=== PATIENT | male | born 2000 | race Caucasian/White ===

== ENCOUNTER 2021-11-12 18:41 | Emergency (ER) | payer OTHER ==
--- NOTE | 2021-11-12 19:37 | ERPHSYRPT ---
- History of Present Illness Time Seen by Provider: 11/12/21 18:52 Source: patient Exam Limitations: no limitations Patient Subjective Stated Complaint: fall- right knee injury Triage Nursing Assessment: Patient brought back to ED via w/c and transferred self to bed. Patient A+O X3. Patient's skin pink, warm and dry. Patient complains of right knee pain 5/10 after sliding off of his truck while working on his causing his right knee and ankle to give out on him 4 days ago. Patient denies pain to right ankle or foot, but right ankle/foot noted to be swollen and bruised. 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 Physician History: 21 years old male presented in the ER after he was working on his truck 4 days ago, slipped off and fell on the ground twisting his ankle and knee. Since then he is having moderate intensity sharp pain in the right knee, more with movements and having difficulty full weightbearing. Patient has a history of clubfoot surgery as a child and has decreased sensations in the ankle and noticed some swelling but no difficulty movements or erythema. Ankle swelling started yesterday. Patient was seen initially at [facility] with a negative x-rays and was recommended to take NSAIDs. Patient does not want any pain medication Method of Injury: fell, twisted Occurred: days ago (4) Quality: sharpness Severity of Pain-Max: moderate Severity of Pain-Current: moderate Lower Extremities Pain: knee: right, ankle: right Modifying Factors: Worsens With: movement Allergies/Adverse Reactions: cephalexin [From Keflex] Allergy (Verified 11/12/21 18:48) Home Medications: No Reportable Medications [No Reported Medications] 11/12/21 [History] Hx Influenza Vaccination/Date Given: No Hx Pneumococcal Vaccination/Date Given: No Immunizations Up to Date: Yes Travel Risk - International Travel Have you traveled outside of the country in past 3 weeks: No - Coronavirus Screening Are you exhibiting any of the following symptoms?: No Close contact with a COVID-19 positive Pt in past 14-21 Days: No - Vaccine Status Have you recieved a Covid-19 vaccination: No - Review of Systems Constitutional: No Symptoms Eyes: No Symptoms Respiratory: No Symptoms Cardiac: No Symptoms Abdominal/Gastrointestinal: No Symptoms Genitourinary Symptoms: No Symptoms Musculoskeletal: Arthralgias, Fall, Injury, Joint Pain, Joint Swelling Skin: No Symptoms Neurological: No Symptoms Psychological: No Symptoms Endocrine: No Symptoms Hematologic/Lymphatic: No Symptoms - Past Medical History Pertinent Past Medical History: No Neurological History: No Pertinent History ENT History: No Pertinent History Cardiac History: No Pertinent History Respiratory History: No Pertinent History Endocrine Medical History: No Pertinent History Musculoskeletal History: No Pertinent History GI Medical History: No Pertinent History History: No Pertinent History Psycho-Social History: No Pertinent History Male Reproductive Disorders: No Pertinent History Other Medical History: 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 - Past Surgical History Past Surgical History: Yes Other Surgical History: multiple surgeries to right foot due to club foot - Social History Smoking Status: Current every day smoker How long have you smoked: years Exposure to second hand smoke: Yes Drug Use: none Patient Lives Alone: No - Nursing Vital Signs Nursing Vital Signs: Initial Vital Signs Temperature 99.6 F 11/12/21 18:49 Pulse Rate 102 H 11/12/21 18:49 Respiratory Rate 18 11/12/21 18:49 Blood Pressure 136/85 11/12/21 18:49 O2 Sat by Pulse Oximetry 99 11/12/21 18:49 Pain Scale Pain Intensity 5 - Physical Exam General Appearance: no apparent distress, alert Eyes, Ears, Nose, Throat Exam: tonsillar exudate Neck Exam: normal inspection Cardiovascular/Respiratory Exam: normal breath sounds, regular rate/rhythm Legs Exam: bilateral leg: non-tender, normal inspection, normal range of motion, no evidence of injury Knees Exam: right knee: joint effusion (Suprapatellar), pain, soft tissue tenderness, swelling, left knee: non-tender, normal inspection, normal range of motion, no evidence of injury Ankle Exam: right ankle: swelling (Nontender swelling around ankle. Intact range of motion.), left ankle: normal inspection, normal range of motion, no evidence of injury, bilateral ankle: non-tender Neuro/Tendon Exam: normal sensation, normal motor functions Mental Status Exam: alert, oriented x 3, cooperative Skin Exam: normal color SpO2 Interpretation: normal SpO2: 99 O2 Delivery: Room Air Ordered Tests: Active Orders 24 hr Category Date Time Status ANKLE (3 VIEWS) Stat Exams 11/12/21 Taken FOOT (MINIMUM 3 VIEWS) Stat Exams 11/12/21 Taken KNEE (MIN 4 VIEW) Stat Exams 11/12/21 Taken - Progress Progress: unchanged Progress Note: 11/12/21 19:49 Offered pain medication which he refused. I believe patient has right suprapatellar effusion. Recommended Sid wrap and outpatient Ortho clinic follow-up. Patient has swelling around right ankle but no tenderness. X-rays negative reviewed by me of both ankles/knee. Official report is pending. Recommended outpatient podiatry follow-up for ankle swelling. Recommended continue with Tylenol ibuprofen, elevation and ice. - Departure Departure Disposition: Home Clinical Impression: Right knee sprain, Ankle swelling Condition: Stable Critical Care Time: No Referrals: DOCTOR,NO FAMILY [Primary Care Provider] - Follow up/PCP as directed ORTHO - SONDRA FRAGA NP [NON-STAFF PHY W/O PRIVILEGES] - Follow up/PCP as directed (In 2 days for reevaluation) MORGAN VILLALBA DPM [ACTIVE STAFF] - Follow up/PCP as directed (In 2 days for ankle swelling reevaluation) Instructions: Knee Sprain (DC) Additional Instructions: Avoid exertional activities, continue with Tylenol/ibuprofen. Right lower extremity elevation while asleep. Intermittent ice. Follow-up with Ortho clinic and podiatry for reevaluation. Return to ER for worsening pain or swelling.
[2021-11-12 19:45] VITALS: BP 135/63; PULSE 99
[2021-11-12 19:46] VITALS: O2SAT 99
--- NOTE | 2021-11-13 08:28 | XRAY ---
Indication: Pain following fall. Comparison: None 3 view right ankle demonstrates anterior medial soft tissue swelling. Deformity distal tibia and calcaneus either developmental or old injury. No other bony, articular, or soft tissue abnormalities.
--- NOTE | 2021-11-13 08:30 | XRAY ---
Indication: Pain following fall. Comparison: None 3 nonweightbearing views right foot demonstrates deformity distal tibia and posterior calcaneus either developmental versus old injury. No other bony, articular, or soft tissue abnormalities.
--- NOTE | 2021-11-13 08:31 | XRAY ---
Indication: Pain following fall. Comparison: None 4 view right knee obtained. No bony, articular, or soft tissue abnormalities.
== END 2021-11-12 19:57 | disposition home or self-care (01) ==
LOC: ED 18:41
DX: S83.91XA Sprain of unspecified site of right knee, initial encounter (principal); W17.89XA Other fall from one level to another, initial encounter; M25.471 Effusion, right ankle; Z72.0 Tobacco use
CPT/HCPCS: 73564; 73610; 73630; 99283

== ENCOUNTER 2022-05-14 01:39 | Emergency (ER) | payer OTHER ==
[2022-05-14] MEDS ORDERED: PROTONIX 40 MG IV IV ONE ×2 (02:05→02:09)
[2022-05-14] MEDS ORDERED: MORPHINE SULFATE 4 MG INJ IV ONE (02:05)
[2022-05-14] MEDS ORDERED: Sodium Chloride 0.9% 1000 ML 1,000 ML IV STA (02:05)
--- NOTE | 2022-05-14 02:08 | ERPHSYRPT ---
- History of Present Illness Time Seen by Provider: 05/14/22 02:07 Historian: patient Exam Limitations: no limitations Patient Subjective Stated Complaint: Left sided abdominal pain that started appx 45 minutes prior to arrival while at rest. Pain described as sharp. Triage Nursing Assessment: Patient alert and oriented x 3. Skin color WNL for ra ce. Bowel sounds present x 4. LBM 05/13/22. Denies N/V, diarrhea. Physician History: Left sided abdominal pain that started appx 45 minutes prior to arrival while at rest. Pain described as sharp. Timing/Duration: today Activities at Onset: none Quality: cramping Abdominal Pain Onset Location: [facility] Pain Radiation: no radiation Severity of Pain-Max: moderate Severity of Pain-Current: moderate Modifying Factors: Improves With: nothing Associated Symptoms: denies symptoms Allergies/Adverse Reactions: cephalexin [From Keflex] Allergy (Verified 05/14/22 01:48) Hx Influenza Vaccination/Date Given: No Hx Pneumococcal Vaccination/Date Given: No Travel Risk - International Travel Have you traveled outside of the country in past 3 weeks: No - Coronavirus Screening Are you exhibiting any of the following symptoms?: No - Vaccine Status Have you recieved a Covid-19 vaccination: No - Review of Systems Constitutional: No Fever, No Chills Eyes: No Symptoms Ears, Nose, & Throat: No Symptoms Respiratory: No Cough, No Dyspnea Cardiac: No Chest Pain, No Edema, No Syncope Abdominal/Gastrointestinal: Abdominal Pain, No Nausea, No Vomiting, No Diarrhea Genitourinary Symptoms: No Dysuria Musculoskeletal: No Back Pain, No Neck Pain Skin: No Rash Neurological: No Dizziness, No Focal Weakness, No Sensory Changes Psychological: No Symptoms Endocrine: No Symptoms All Other Systems: Reviewed and Negative - Past Medical History Pertinent Past Medical History: No Neurological History: No Pertinent History ENT History: No Pertinent History Cardiac History: No Pertinent History Respiratory History: No Pertinent History Endocrine Medical History: No Pertinent History Musculoskeletal History: No Pertinent History GI Medical History: No Pertinent History History: No Pertinent History Psycho-Social History: No Pertinent History Male Reproductive Disorders: No Pertinent History Other Medical History: R CLUB FOOT, HE HAS HAD 20 SURGERIES. PT WITH SMALLER R CALF AND HE NOTES HE WALKS ON A SUPINATED FOOT. - Past Surgical History Past Surgical History: Yes Neuro Surgical History: No Pertinent History Cardiac: No Pertinent History Respiratory: No Pertinent History Gastrointestinal: No Pertinent History Genitourinary: No Pertinent History Musculoskeletal: Other Male Surgical History: No Pertinent History Other Surgical History: multiple surgeries to right foot due to club foot, ACL repair - Social History Smoking Status: Current every day smoker How long have you smoked: 10 years Exposure to second hand smoke: Yes Drug Use: marijuana Patient Lives Alone: No - Nursing Vital Signs Nursing Vital Signs: Initial Vital Signs Temperature 95.5 F 05/14/22 01:48 Pulse Rate 57 L 05/14/22 01:48 Respiratory Rate 20 05/14/22 01:48 Blood Pressure 134/79 05/14/22 01:48 O2 Sat by Pulse Oximetry 100 05/14/22 01:48 Pain Scale Pain Intensity 0 - Physical Exam General Appearance: no apparent distress, alert Eye Exam: PERRL/EOMI, eyes nml inspection Ears, Nose, Throat Exam: normal ENT inspection, pharynx normal, moist mucous membranes Neck Exam: normal inspection, non-tender, supple, full range of motion Respiratory Exam: normal breath sounds, lungs clear, No respiratory distress Cardiovascular Exam: regular rate/rhythm, normal heart sounds Gastrointestinal/Abdomen Exam: soft, No tenderness, No mass Back Exam: normal inspection, normal range of motion, No CVA tenderness, No vertebral tenderness Extremity Exam: normal inspection, normal range of motion, pelvis stable Neurologic Exam: alert, oriented x 3, cooperative, normal mood/affect, nml cerebellar function, sensation nml, No motor deficits Skin Exam: normal color, warm, dry SpO2: 100 - Course Nursing assessment & vital signs reviewed: Yes - CT Exams Abdomen/Pelvis CT Interpretation: Tele-radiologist Report Ordered Tests: Active Orders 24 hr Category Date Time Status ABDOMEN AND PELVIS W/0 CONTRAS [CT] Stat Exams 05/14/22 02:06 Taken AMYLASE Stat Lab 05/14/22 02:17 Completed CBC W DIFF Stat Lab 05/14/22 02:17 Completed CMP Stat Lab 05/14/22 02:17 Completed CULTURE,URINE Stat Lab 05/14/22 02:08 Received LIPASE Stat Lab 05/14/22 02:17 Completed UA W/RFX CULTURE Stat Lab 05/14/22 02:08 Completed Medication Summary Generic Name Dose Route Start Last Admin Trade Name Freq PRN Reason Stop Dose Admin Lactated Ringer's 1,000 mls @ 999 mls/hr 05/14/22 02:39 05/14/22 03:26 Lactated Ringers IV 05/14/22 03:39 999 mls/hr .Q1H1M ONE Administration Levofloxacin/Dextrose 500 mg in 100 mls @ 100 mls/hr 05/14/22 02:40 05/14/22 02:49 Levofloxacin 500mg/100ml D5w IV 05/14/22 03:39 100 mls/hr STAT STA 100 mls/hr Administration Discontinued Medications Generic Name Dose Route Start Last Admin Trade Name Mary PRN Reason Stop Dose Admin Sodium Chloride 1,000 mls @ 999 mls/hr 05/14/22 02:05 05/14/22 02:14 Sodium Chloride 0.9% 1000 Ml IV 05/14/22 03:05 999 mls/hr .Q1H1M STA Administration Sodium Chloride Confirm 05/14/22 02:10 Sodium Chloride 0.9% 1000 Ml Administered 05/14/22 02:11 Dose 1,000 mls @ ud .ROUTE .STK-MED ONE Levofloxacin/Dextrose Confirm 05/14/22 02:49 Levofloxacin 500mg/100ml D5w Administered 05/14/22 02:50 Dose 500 mg in 100 mls @ ud IV .STK-MED ONE Lactated Ringer's Confirm 05/14/22 03:25 Lactated Ringers Administered 05/14/22 03:26 Dose 1,000 mls @ ud IV .STK-MED ONE Morphine Sulfate 4 mg 05/14/22 02:05 05/14/22 02:14 Morphine Sulfate 4 Mg/Ml Injection IV 05/14/22 02:06 4 mg STAT ONE Administration Morphine Sulfate Confirm 05/14/22 02:10 Morphine Sulfate 4 Mg/Ml Injection Administered 05/14/22 02:11 Dose 4 mg .ROUTE .STK-MED ONE Pantoprazole Sodium 40 mg 05/14/22 02:05 05/14/22 02:14 Pantoprazole 40 Mg Vial IV 05/14/22 02:06 40 mg STAT ONE Administration Pantoprazole Sodium Confirm 05/14/22 02:09 Pantoprazole 40 Mg Vial Administered 05/14/22 02:10 Dose 40 mg IV .STK-MED ONE Potassium Bicarbonate 50 meq 05/14/22 02:39 05/14/22 02:42 Potassium Bicarbonate 25 Meq Tab PO 07/31/22 02:40 50 meq STAT ONE Administration Potassium Bicarbonate Confirm 05/14/22 02:42 Potassium Bicarbonate 25 Meq Tab Administered 05/14/22 02:43 Dose 50 meq .ROUTE .STK-MED ONE Lab/Rad Data: Laboratory Result Diagrams 05/14/22 02:17 05/14/22 02:17 Laboratory Results 05/14/22 05/14/22 05/14/22 Range/Units 02:17 02:17 02:08 WBC 8.9 (4.0-10.5) x10^3/uL RBC 4.87 (4.1-5.6) x10^6/uL Hgb 14.6 (12.5-18.0) g/dL Hct 42.7 (42-50) % MCV 87.7 (78-100) fL MCH 30.0 (26-32) pg MCHC 34.2 (32-36) g/dL RDW 12.3 (11.5-14.0) % Plt Count 213 (150-450) x10^3/uL MPV 10.0 (7.5-11.0) fL Gran % 52.7 (36.0-66.0) % Immature Gran % (Auto) 0.2 (0.00-0.4) % Nucleat RBC Rel Count 0.0 (0.00-0.1) % Eos # (Auto) 0.16 (0-0.5) x10^3/uL Immature Gran # (Auto) 0.02 (0.00-0.03) x10^3u/L Absolute Lymphs (auto) 3.21 (1.0-4.6) x10^3/uL Absolute Monos (auto) 0.75 (0.0-1.3) x10^3/uL Absolute Nucleated RBC 0.00 (0.00-0.01) x10^3u/L Lymphocytes % 36.1 (24.0-44.0) % Monocytes % 8.4 (0.0-12.0) % Eosinophils % 1.8 (0.00-5.0) % Basophils % 0.8 (0.0-0.4) % Absolute Granulocytes 4.68 (1.4-6.9) x10^3/uL Basophils # 0.07 (0-0.4) x10^3/uL Sodium 138 (137-145) mmol/L Potassium 2.9 L* (3.5-5.1) mmol/L Chloride 103 (98-107) mmol/L Carbon Dioxide 24 (22-30) mmol/L Anion Gap 13.9 (5-15) MEQ/L BUN 12 (9-20) mg/dL Creatinine 1.00 (0.66-1.25) mg/dL Estimated GFR > 60.0 ML/MIN Glucose 112 H (74-106) mg/dL Calcium 9.5 (8.4-10.2) mg/dL Total Bilirubin 0.60 (0.2-1.3) mg/dL AST 24 (17-59) U/L ALT 20 (0-50) U/L Alkaline Phosphatase 82 (38-126) U/L Serum Total Protein 7.8 (6.3-8.2) g/dL Albumin 4.5 (3.5-5.0) g/dL Amylase 69 (30-110) U/L Lipase 45 (23-300) U/L Urinalys Dipstick Clnc MAIN LAB Urine Color YELLOW (YELLOW) Urine Appearance CLEAR (CLEAR) Urine pH 5.5 (5-6) Ur Specific Mingus >=1.030 (1.005-1.025) POC Urine Protein Conf 100 (Negative) Urine Ketones NEGATIVE (NEGATIVE) Urine Nitrite POSITIVE (NEGATIVE) Urine Bilirubin SMALL (NEGATIVE) Urine Urobilinogen 0.2 (0-1) mg/dL Urine Leukocytes NEGATIVE (NEGATIVE) Urine WBC (Auto) 3-5 (0-5) /HPF Urine RBC (Auto) 51-100 (0-2) /HPF U Epithel Cells (Auto) NONE (FEW) /HPF Urine Bacteria (Auto) NONE (NEGATIVE) /HPF Urine RBC LARGE (0-5) Livan/ul Unidentified Crystals 25-50 (NEGATIVE) /HPF Urine Mucus (Auto) SLIGHT (NEGATIVE) /HPF Ur Culture Indicated? YES Urine Glucose NEGATIVE (NEGATIVE) mg/dL - Progress Progress: improved, pain not gone completely Counseled pt/family regarding: lab results, diagnosis, need for follow-up, rad results - Departure Departure Disposition: Home Clinical Impression: Pyelonephritis of left kidney Condition: Stable Critical Care Time: No Referrals: DOCTOR,NO FAMILY [Primary Care Provider] - Follow up/PCP as directed Instructions: Kidney Infection (DC) Additional Instructions: Discharge/Care Plan JEFF VELAZQUEZ was seen on 05/14/22 in the Emergency Room. The patient was counseled regarding Diagnosis,Lab results, Imaging studies, need for follow up and when to return to the Emergency Room. Prescriptions given: Discharge Note I have spoken with the patient and/or caregivers. I have explained the patient's condition, diagnosis and treatment plan based on the information available to me at this time. I have answered the patient's and/or caregiver's questions and addressed any concerns. The patient and/or caregivers have as good understanding of the patient's diagnosis, condition and treatment plan as can be expected at this point. The vital signs have been stable. The patient's condition is stable and appropriate for discharge from the emergency department. The patient will pursue further outpatient evaluation with the primary care physician or other designated or consulting physician as outlined in the dischar ge instructions. The patient and/or caregivers are agreeable to this plan of care and follow-up instructions have been explained in detail. The patient and/or caregivers have received these instruction. The patient/and or caregivers are aware that any significant change in condition or worsening of symptoms should prompt an immediate return to this or the closest emergency department or call 911. JEFF VELAZQUEZ was seen on 05/14/22 n the Emergency Room. At that time you were treated for an emergent condition, during your visit Laboratory, Radiology and/or other procedures may have been ordered. It is very important that you follow-up with your Primary Care Physician NO FAMILY DOCTOR within the next 24- 48 hours to review your Emergency Room visit and the final results of testing that was ordered. Some test results such as Urine Cultures, Blood Cultures, and other cultures if ordered will not be finalized for 24-48 hours. If you do not have a Primary Care Provider please call the medical records department at [phone] ext [phone] to obtain a copy of your results or you may sign into our patient portal to obtain these results by visiting us @ [email or web address] and completing the following steps: 1. Click on the Patient Portal link 2. Click the Patient Self Enrollment Link to complete the enrollment form and entering your 3. Once the enrollment form is completed you will receive an email with a temporary ID and password at the email address you provided. 4. Next choose a user name and password. Your user name must be at least 4 characters long and your password must be at least 4 characters long. 5. Choose a security question from the list and provide your answer to the question. If you already have signed into the Health Portal you may access your Health Care Information 07/05 by the following steps: 1. Login to our website @ [email or web address] 2. Enter your original user name and password. FAQS The [facility] Health Portal is an online tool that contains your Lab Results, Rad iology Reports, Visit History, Discharge Instructions and Health Summary Lab and Radiology Results will not be available for 72 hours on the portal. The Portal is a secure site, passwords are encryted and URLs are re-written so they cannot be copied and pasted. You and authorized family members are the only ones who can access your Portal. Also there is a timeout feature that protects your information if you leave the Portal page open. If you have technical difficulty please use the Contact Us link on the page this will allow you to submit any questions you have regarding the Portal or you may contact the Medical Record Department at [phone] ext [phone]. Prescriptions: Ciprofloxacin [Cipro 500 MG] 500 mg PO BID #20 tablet Tramadol HCl/Acetaminophen [Tramadol-Acetaminophn 37.5-325] 1 each PO TID #15 tablet
[2022-05-14] MEDS ORDERED: MORPHINE SULFATE 4 MG INJ ONE (02:10)
[2022-05-14] MEDS ORDERED: Sodium Chloride 0.9% 1000 ML 1,000 ML ONE (02:10)
[2022-05-14 02:25] LABS: Crystals Unidentified 25-50 /HPF (NEGATIVE); Mucus SLIGHT /HPF (NEGATIVE); RBC 51-100 /HPF (0-2)
[2022-05-14 02:26] LABS: Appearance CLEAR (CLEAR); Bilirubin SMALL (NEGATIVE); Glucose NEGATIVE (NEGATIVE)
[2022-05-14 02:27] LABS: Dipstick done @ ? MAIN LAB; Ketones NEGATIVE (NEGATIVE); Nitrite POSITIVE (NEGATIVE); Ph 5.5 (5-6); Protein,Urine Dip 100 (Negative); RBC LARGE Ery/ul (0-5); Specific Gravity >=1.030 (1.005-1.025); Urobilinogen 0.2 mg/dL (0-1)
[2022-05-14 02:28] LABS: Urine Cultured Indicated? YES
[2022-05-14 02:32] LABS: ALBUMIN 4.5 g/dL (3.5-5.0); ALKALINE PHOSPHATASE 82 U/L (38-126); AMYLASE 69 U/L (30-110); ANION GAP 13.9 MEQ/L (5-15); BLOOD UREA NITROGEN 12 mg/dL (9-20); CHLORIDE 103 mmol/L (98-107); Calcium 9.5 mg/dL (8.4-10.2); Carbon Dioxide 24 mmol/L (22-30); EST GLOMERULAR FILTRATION RATE > 60.0 ML/MIN; Glucose 112 mg/dL (74-106); LIPASE 45 U/L (23-300); SGOT/AST 24 U/L (17-59); SGPT/ALT 20 U/L (0-50); SODIUM 138 mmol/L (137-145); Total Protein 7.8 g/dL (6.3-8.2)
[2022-05-14 02:34] LABS: Absolute Neutrophil Ct (ANC) 4.68 x10^3/uL (1.4-6.9); Basophil (Absolute #) 0.07 x10^3/uL (0-0.4); Eosinophil % 1.8 % (0.00-5.0); Eosinophil (Absolute #) 0.16 x10^3/uL (0-0.5); Hematocrit 42.7 % (42-50); Hemoglobin 14.6 g/dL (12.5-18.0); Lymphocyte (Absolute #) 3.21 x10^3/uL (1.0-4.6); Lymphocytes % 36.1 % (24.0-44.0); Mean Cell Volume 87.7 fL (78-100); Mean Corpuscular Hgb Concent. 34.2 g/dL (32-36); Monocyte (Absolute #) 0.75 x10^3/uL (0.0-1.3); Monocytes % 8.4 % (0.0-12.0); Neutrophil % 52.7 % (36.0-66.0); Platelet Count 213 x10^3/uL (150-450); Red Blood Count 4.87 x10^6/uL (4.1-5.6); Red Cell Distribution Width 12.3 % (11.5-14.0); White Blood Count 8.9 x10^3/uL (4.0-10.5)
[2022-05-14 02:38] LABS: Potassium 2.9 mmol/L (3.5-5.1)
[2022-05-14] MEDS ORDERED: Lactated Ringers 1,000 ML IV ONE ×2 (02:39→03:25)
[2022-05-14] MEDS ORDERED: K-LYTE PO ONE (02:39)
[2022-05-14] MEDS ORDERED: Levofloxacin 500MG/100ML D5W 500 MG/100 ML BAG IV STA (02:40)
[2022-05-14] MEDS ORDERED: K-LYTE ONE (02:42)
[2022-05-14] MEDS ORDERED: Levofloxacin 500MG/100ML D5W 500 MG/100 ML BAG IV ONE (02:49)
[2022-05-14 04:05] VITALS: BP 108/52; PULSE 58; O2SAT 98
--- NOTE | 2022-05-14 07:36 | XRAY ---
Indication: Left upper quadrant abdomen pain. Multiple contiguous axial images obtained through the abdomen and pelvis without contrast. Comparison: None Lung bases are clear. Heart not enlarged. Noncontrasted stomach and bowel loops appear nonobstructed with normal appendix. 2 mm distal left ureter calculus just proximal to UVJ (image [id number]). Proximal left ureter is slightly prominent with minimal hydronephrosis consistent with partial obstructive uropathy. No free fluid/air. Remaining liver, gallbladder, pancreas, spleen, adrenal glands, kidneys, ureters, bladder, and aorta are unremarkable for noncontrast exam. Osseous structures intact. Impression: 1. 2 mm distal left ureter calculus producing partial obstructive uropathy. 2. Remaining CT abdomen/pelvis without contrast exam is negative. Comment: Preliminary interpretation made by [facility] who does not report calculus. Telephone report was given to Dr. Mireles at 0730 hrs. on May 14, 2022.
== END 2022-05-14 04:13 | disposition home or self-care (01) ==
LOC: ED 01:39
DX: N13.6 Pyonephrosis (principal); R10.12 Left upper quadrant pain; Z72.0 Tobacco use; Z28.310 Unvaccinated for COVID-19; Z79.891 Long term (current) use of opiate analgesic
CPT/HCPCS: 36000; 36415; 74176; 80053; 81015; 82150; 83690; 85025; 87086; 96360; 96365; 96374; 96375; 99284; J1956; J2270; A9270-GY